=== PATIENT | female | born 1980 | race Caucasian/White ===

== ENCOUNTER 2016-08-16 10:45 | Emergency (ER) | payer MEDICAID ==
[~2016-08-16] VITALS: Ht 165.1 cm; Wt 82.0 kg
[~2016-08-16 10:45] MED LIST: CYCL10TA50; METH750T87; TRAM-28
[2016-08-16 10:47] VITALS: BP 116/78
[2016-08-16] MEDS ORDERED: HYDROcodone/APAP 5/325 TABLET ONE (11:11)
[2016-08-16] MEDS ORDERED: HYDROcodone/APAP 5/325 TABLET PO ONE (11:30)
== END 2016-08-16 11:26 | disposition home or self-care (01) ==
LOC: ED 11:20
DX: K02.9 Dental caries, unspecified (principal); F17.210 Nicotine dependence, cigarettes, uncomplicated
CPT/HCPCS: 99283

== ENCOUNTER 2017-04-18 12:19 | Emergency (ER) | payer SELFPAY ==
[~2017-04-18] VITALS: Ht 165.1 cm; Wt 81.0 kg
[~2017-04-18 12:19] MED LIST changes: -TRAM-28; +TRAM-47
[2017-04-18 12:20] VITALS: BP 112/80
== END 2017-04-18 13:04 | disposition home or self-care (01) ==
LOC: ED 12:50
DX: J01.00 Acute maxillary sinusitis, unspecified (principal); F17.210 Nicotine dependence, cigarettes, uncomplicated
CPT/HCPCS: 99283

== ENCOUNTER 2017-04-22 11:07 | Emergency (ER) | payer MEDICAID, OTHER ==
[~2017-04-22] VITALS: Ht 172.7 cm; Wt 80.6 kg
[2017-04-22 11:42] VITALS: BP 128/78
[2017-04-22 12:57] LABS: RAPID INFLUENZA A Negative (Negative); RAPID INFLUENZA B Negative (Negative)
== END 2017-04-22 13:45 | disposition home or self-care (01) ==
LOC: ED 13:43
DX: J45.909 Unspecified asthma, uncomplicated (principal); Z90.49 Acquired absence of other specified parts of digestive tract
CPT/HCPCS: 71046; 87400; 99285

== ENCOUNTER 2017-06-09 10:02 | Emergency (ER) | payer SELFPAY ==
[~2017-06-09] VITALS: Ht 165.1 cm; Wt 81.8 kg
[2017-06-09 10:30] VITALS: BP 145/79
== END 2017-06-09 11:02 ==
LOC: ED 10:50
DX: K08.89 Other specified disorders of teeth and supporting structures (principal)
CPT/HCPCS: 99283

== ENCOUNTER 2017-08-20 11:01 | Emergency (ER) | payer MEDICAID, OTHER ==
[~2017-08-20] VITALS: Ht 165.1 cm; Wt 83.2 kg
[2017-08-20 11:12] VITALS: BP 116/74
[2017-08-20] MEDS ORDERED: KETOROLAC 30 MG/1 ML IM ONE (11:30)
[2017-08-20] MEDS ORDERED: KETOROLAC 30 MG/1 ML ONE (11:52)
== END 2017-08-20 12:04 | disposition home or self-care (01) ==
LOC: ED 11:51
DX: S39.012A Strain of muscle, fascia and tendon of lower back, initial encounter (principal); F17.210 Nicotine dependence, cigarettes, uncomplicated; X58.XXXA Exposure to other specified factors, initial encounter; Y93.89 Activity, other specified; Y99.8 Other external cause status; Y92.89 Other specified places as the place of occurrence of the external cause
CPT/HCPCS: 96372; 99283; J1885

== ENCOUNTER 2019-05-29 17:38 | Emergency (ER) | payer MEDICAID ==
[~2019-05-29] VITALS: Ht 165.1 cm; Wt 85.2 kg
[~2019-05-29 17:38] MED LIST changes: +GABA300C10 PO; +TRAM50TA2 PO
[2019-05-29 18:01] VITALS: BP 111/81
[2019-05-29 18:33] LABS: BASOPHILS # (AUTO) 0.04 x10^3/uL (0-0.1); BASOPHILS % (AUTO) 1 % (0-1); EOSINOPHILS # (AUTO) 0.13 x10^3/uL (0-0.4); EOSINOPHILS % (AUTO) 2 % (1-7); LYMPHOCYTES # (AUTO) 2.36 x10^3/uL (1-3.4); LYMPHOCYTES % (AUTO) 37 % (22-44); MD NO; MEAN CORPUSCULAR HEMOGLOBIN 31.9 pg (27.0-34.8); MEAN CORPUSCULAR HGB CONC 34.1 g/dL (32.4-35.8); MEAN CORPUSCULAR VOLUME 93.3 fL (80-100); MEAN PLATELET VOLUME 7.7 fL (7.4-10.4); MONOCYTES # (AUTO) 0.43 x10^3/uL (0.2-0.8); MONOCYTES % (AUTO) 7 % (2-9); NEUTROPHILS # (AUTO) 3.45 x10^3/uL (1.8-6.8); NEUTROPHILS % (AUTO) 54 % (42-75); PLATELET COUNT 250 x10^3/uL (130-400); RED BLOOD COUNT 4.34 x10^6/uL (3.82-5.3); RED CELL DISTRIBUTION WIDTH 12.7 % (9.6-15.2)
== END 2019-05-29 19:36 | disposition home or self-care (01) ==
LOC: ED 18:55
DX: J02.8 Acute pharyngitis due to other specified organisms (principal); B97.89 Other viral agents as the cause of diseases classified elsewhere; J45.909 Unspecified asthma, uncomplicated
CPT/HCPCS: 36415; 85025; 86308; 87081; 87880; 99283

== ENCOUNTER 2020-02-09 00:35 | Emergency (ER) | payer MEDICAID ==
[~2020-02-09] VITALS: Ht 165.1 cm; Wt 90.7 kg
[2020-02-09 00:42] VITALS: BP 134/69
[2020-02-09] MEDS ORDERED: PENICILLIN VK 500MG TABLET ONE (01:28)
[2020-02-09] MEDS ORDERED: PENICILLIN VK 500MG TABLET PO SCH (01:30)
== END 2020-02-09 01:58 | disposition home or self-care (01) ==
LOC: ED 01:15
DX: K02.9 Dental caries, unspecified (principal); K08.89 Other specified disorders of teeth and supporting structures; K01.1 Impacted teeth; J45.909 Unspecified asthma, uncomplicated; Z90.49 Acquired absence of other specified parts of digestive tract
CPT/HCPCS: 99283

== ENCOUNTER 2020-04-03 13:28 | Emergency (ER) | payer MEDICAID ==
[~2020-04-03] VITALS: Ht 167.6 cm; Wt 90.4 kg
[2020-04-03 13:35] VITALS: BP 135/89
[2020-04-03] MEDS ORDERED: LIDOCAINE-MPF 1%, 5ML ONE (14:23)
[2020-04-03] MEDS ORDERED: BUPIVACAINE 0.25% ONE (14:23)
[2020-04-03] MEDS ORDERED: BUPIVACAINE 0.25% INFIL ONE (14:30)
[2020-04-03] MEDS ORDERED: LIDOCAINE 1%, 10ML INFIL ONE (14:30)
== END 2020-04-03 15:01 | disposition home or self-care (01) ==
LOC: ED 14:59
DX: K02.9 Dental caries, unspecified (principal); J45.909 Unspecified asthma, uncomplicated; F17.200 Nicotine dependence, unspecified, uncomplicated; Z90.89 Acquired absence of other organs; Z79.899 Other long term (current) drug therapy
CPT/HCPCS: 64400; 99284